=== PATIENT | female | born 1950 | race Hispanic/Latino ===

== ENCOUNTER 2016-11-15 11:38 | Emergency (ER) | payer MEDICARE ==
--- NOTE | 2016-11-15 12:34 | ED PDOC ---
HPI: General Adult Time Seen by Provider: 11/15/16 12:04 Chief Complaint (Nursing): Chest Pain History Per: Patient History/Exam Limitations: no limitations Onset/Duration Of Symptoms: Days Current Symptoms Are (Timing): Intermittent Episodes Additional Complaint(s): Ronna Hoang is a 66 year old female, with a previous medical history of hyperthyroidism, who presents to the ED for the evaluation of mid back pain which radiates to her chest intermittently ongoing for 3 days. Patient reports pain when laying down and states it feels "sharp" and similar to indigestion. She states to suffering a cold 2 weeks ago where she was seen at [facility] and informed something was wrong with her aorta and needed follow up with her ginseng farmer. Patient reports seeing her ginseng farmer (Dr. Graham) who informed her she was fine. Patient then recalls going to her PMD for persisting symptoms of cold where she was treated for pneumonia, placed on an antibiotic and steroid which she finished taking. PMD: Past Medical History Reviewed: Historical Data, Nursing Documentation, Vital Signs Vital Signs: Last Vital Signs Temp 98.2 F 11/15/16 11:45 Pulse 90 11/15/16 11:45 Resp 18 11/15/16 11:45 BP 137/86 11/15/16 11:45 Pulse Ox 97 11/15/16 11:45 - Medical History PMH: Anxiety, HTN, Hyperthyroidism - Home Medications Home Medications: Ambulatory Orders Medication Instructions Recorded LORazepam [Ativan] 0.5 mg PO HS #15 tab 12/19/14 - Allergies Allergies/Adverse Reactions: Allergies Allergy/AdvReac Type Severity Reaction Status Date / Time tetracycline Allergy RASH Verified 09/24/15 12:19 Review of Systems ROS Statement: Except As Marked, All Systems Reviewed And Found Negative Constitutional: Negative for: Fever, Chills Cardiovascular: Positive for: Chest Pain Musculoskeletal: Positive for: Back Pain Physical Exam - Reviewed Nursing Documentation Reviewed: Yes Vital Signs Reviewed: Yes - Physical Exam Appears: Positive for: Well, Non-toxic, No Acute Distress Head Exam: Positive for: ATRAUMATIC, NORMAL INSPECTION, NORMOCEPHALIC Skin: Positive for: Normal Color, Warm, Dry Neck: Positive for: Normal, Painless ROM, Supple Cardiovascular/Chest: Positive for: Regular Rate, Rhythm, Chest Non Tender Respiratory: Positive for: CNT, Normal Breath Sounds Gastrointestinal/Abdominal: Positive for: Normal Exam, Bowel Sounds, Soft. Negative for: Tenderness Back: Positive for: Vertebral Tenderness (midline thoracic spine ). Negative for: L CVA Tenderness, R CVA Tenderness Extremity: Positive for: Normal ROM Neurologic/Psych: Positive for: Alert, Oriented - ECG O2 Sat by Pulse Oximetry: 97 (RA) Pulse Ox Interpretation: Normal Medical Decision Making Medical Decision Making: Initial Impression: back pain, chest pain Initial Plan: * CT chest angio * EKG * labs * TSH * troponin I * urine dipstick * D-dimer * PTT * PT * reevaluation Scribe Attestation: Documented by Eneida Alonzo, acting as a scribe for Eneida Khan MD. Provider Scribe Attestation: All medical record entries made by the Scribe were at my direction and personally dictated by me. I have reviewed the chart and agree that the record accurately reflects my personal performance of the history, physical exam, medical decision making, and the department course for this patient. I have also personally directed, reviewed, and agree with the discharge instructions and disposition. Disposition - Disposition Referrals: Provider ROSENDA, [Primary Care Provider] -
[2016-11-15 13:04] LABS: BASO # 0.1 K/uL (0.0-0.2); BASO % 0.5 % (0.0-2.0); EOS # 0.2 K/uL (0.0-0.7); EOS % 1.8 % (0.0-4.0); HEMATOCRIT 39.2 % (34.0-47.0); LYMPH # 1.8 K/uL (1.0-4.3); LYMPH % 16.3 % (20.0-40.0); MEAN CELL VOLUME 88.3 fl (81.0-99.0); MEAN CORPUSCULAR HEMOGLOBIN 30.1 pg (27.0-31.0); MEAN CORPUSCULAR HGB CONC 34.1 g/dL (33.0-37.0); MONO # 0.7 K/uL (0.0-0.8); MONO % 6.6 % (0.0-10.0); NEUT # 8.1 K/uL (1.8-7.0); NEUT % 74.8 % (50.0-75.0); RED CELL DISTRIBUTION WIDTH 13.3 % (11.5-14.5); WHITE BLOOD COUNT 10.8 K/uL (4.8-10.8)
[2016-11-15 13:08] LABS: ALB/GLOB RATIO 1.3 (1.0-2.1); ALKALINE PHOSPHATASE 90 U/L (38-126); ALT/SGPT 49 U/L (9-52); AST/SGOT 31 U/L (14-36); BILIRUBIN,TOTAL 0.7 mg/dl (0.2-1.3); BLOOD UREA NITROGEN 12 mg/dl (7-17); CALCIUM 10.3 mg/dL (8.4-10.2); CARBON DIOXIDE 25 mmol/L (22-30); CHLORIDE 103 mmol/L (98-107); GFR AFRICAN-AMERICAN > 60; GLUCOSE,RANDOM 92 mg/dL (65-105); POTASSIUM 3.7 MMOL/L (3.6-5.0); SODIUM 139 mmol/l (132-148); TOTAL PROTEIN 7.8 G/DL (6.3-8.2)
[2016-11-15 13:38] LABS: PARTIAL THROMBOPLASTIN TIME 27.5 Seconds (25.6-37.1)
[2016-11-15 13:39] LABS: THYROID STIMULATING HORMONE 6.36 mIU/ML (0.46-4.68)
--- NOTE | 2016-11-15 13:46 | CARD ---
APPROVED REPORT EKG Measurement Heart [id number] <Conclusion> Normal sinus rhythm Nonspecific ST abnormality Abnormal ECG
--- NOTE | 2016-11-15 16:59 | CT ---
PROCEDURE: CT Chest with contrast (Pulmonary Angiogram) HISTORY: Chest/back pain COMPARISON: None available. TECHNIQUE: Axial computed tomography images were obtained of the chest in the pulmonary arterial phase of enhancement. Coronal and sagittal reformatted images were created and reviewed. Intravenous contrast dose: 98 cc Visipaque 320 contrast material. Radiation dose: Total exam DLP = 255.51 mGy-cm. This CT exam was performed using one or more of the following dose reduction techniques: Automated exposure control, adjustment of the mA and/or kV according to patient size, and/or use of iterative reconstruction technique. FINDINGS: PULMONARY ARTERIES: Unremarkable. No pulmonary embolism. The visualized of pulmonary trunk, right and left main, lobar, segmental and subsegmental branches of the pulmonary arteries are well opacified with no definitive filling defects seen to suggest acute pulmonary embolus. Pulmonary trunk measures approximately 2.75 cm AORTA: . Ascending thoracic aorta measures approximately 3.5 cm and descending thoracic aorta measures approximately 2.3 cm. No evidence of at thoracic aortic aneurysm or dissection. LUNGS: Mild atelectasis/scarring changes right posterior lung base and left lingular regions. . Mild biapical pleural thickening and parenchymal scarring right greater than left. . Small approximately 3.5 mm calcified granuloma right posterior superior upper lobe bordering the fissure. . 2.5 mm nodular density left lung apex Small subpleural 3.4 mm subpleural nodule left posterior upper lobe PLEURAL SPACES: Unremarkable. No effusion or pneuomothorax. HEART: . Heart size within range of normal. No significant pericardial effusion. LYMPH NODES: No significant mediastinal or hilar lymphadenopathy. . The central airways are midline patent. No endoluminal lesions seen. . BONES, CHEST WALL: Unremarkable. Minor multilevel degenerative spondylosis of the thoracic spine. There are no acute compression fractures no retropulsed fragments. Mild diffuse demineralization however no suspicious lytic or blastic lesions identified. . OTHER FINDINGS: Mild fatty hepatic infiltration. Pancreas is slightly atrophic and fatty replaced. Mildly nodular right adrenal gland. IMPRESSION: No evidence of acute central pulmonary embolus. Mild bibasilar atelectasis and or scarring in the right posterior lung base and lingular region. There also mild chronic biapical pleural thickening changes and parenchymal scarring right greater than left. Small parenchymal and subpleural nodules left posterior upper lung field as above. Follow-up CT scan in 6 months could be performed. Tiny granuloma right upper lung field. Mild fatty hepatic infiltration. Slight nodular right adrenal gland.
--- NOTE | 2016-11-15 17:20 | ED PDOC ---
- Laboratory Results Result Diagrams: 11/15/16 12:40 11/15/16 12:40 - ECG ECG Rhythm: Positive for: Normal QRS, Nonspecific Changes O2 Sat by Pulse Oximetry: 97 (RA) Disposition - Clinical Impression Clinical Impression: Pleuritic chest pain - POA Present On Arrival: None - Disposition Referrals: Provider TBD, [Primary Care Provider] - Blake Berman MD [Staff Provider] - Disposition: Routine/Home Disposition Time: 17:19 Condition: FAIR Prescriptions: Naproxen [Naprosyn] 500 mg PO Q12H #20 tab Instructions: Pleurisy (ED)
[2016-11-15 17:35] VITALS: BP 132/74; PULSE 75; RESP 19; TEMP 98.6; O2SAT 99
== END 2016-11-15 17:35 | disposition home or self-care (01) ==
LOC: SUPCPDRO 11:38 → H.ER 11:38
DX: R09.1 Pleurisy (principal); E05.90 Thyrotoxicosis, unspecified without thyrotoxic crisis or storm

== ENCOUNTER 2017-07-28 09:01 | Day surgery (SDC) | payer MEDICARE ==
[2017-07-16 09:56] VITALS: RESP 20
[2017-07-16 09:59] VITALS: BMI 20.3
[2017-07-28] MEDS ORDERED: Acetylcholine 1% Opth System Pack IO ONE (09:33)
[2017-07-28] MEDS ORDERED: Tetracaine 0.5% Ophth 2 ML BOTTLE ONE (09:33)
[2017-07-28] MEDS ORDERED: Lidocaine 1% 20 MG/2 ML PF AMP ONE (09:33)
[2017-07-28] MEDS ORDERED: Maxitrol Opht Susp ONE (09:33)
[2017-07-28] MEDS ORDERED: Pilocarpine 1% Opht Soln ONE (09:34)
[2017-07-28] MEDS ORDERED: CA CL/K CL/NA CL 500 ML IR ONE (09:34)
[2017-07-28] MEDS ORDERED: EPINEPHrine 1 mg/ml (1:1000) Inj ONE (09:34)
[2017-07-28] MEDS ORDERED: BSS 15 ML 45 ML IR ONE (09:34)
[2017-07-28] MEDS ORDERED: Chondroitin/Hyaluronate Opth Syringe KIT (0.55 ml-0.5 ml) IO ONE (09:35)
[2017-07-28] MEDS ORDERED: Povidone Iodine 5% Opht SOLUTION ONE (09:35)
[2017-07-28] MEDS ORDERED: Phenylephrine 2.5% Opht Soln OS ONE (09:39)
[2017-07-28] MEDS ORDERED: Flurbiprofen 0.3% Opht SOLN OS SCH (09:45)
[2017-07-28] MEDS ORDERED: Tropicamide 1% Opht 150 DROP/15 ML OS SCH (09:45)
[2017-07-28] MEDS: Phenylephrine 2.5% Opht Soln OS ONE ×2 (10:15→12:15)
[2017-07-28] MEDS ORDERED: Flurbiprofen 0.3% Opht SOLN OS ONE (10:15)
[2017-07-28] MEDS ORDERED: Tropicamide 1% Opht 150 DROP/15 ML OS ONE (10:15)
[2017-07-28] MEDS ORDERED: Midazolam 2 MG/2 ML VIAL ONE (11:46)
[2017-07-28] MEDS ORDERED: Lactated Ringer's 1,000 ML IV ONE (11:52)
[2017-07-28] MEDS ORDERED: BSS 15 ML SOL IR ONE (12:15)
[2017-07-28 13:44] VITALS: TEMP 97.8
[2017-07-28 13:46] VITALS: BP 130/82; PULSE 69
[2017-07-28 13:50] VITALS: O2SAT 96
--- NOTE | 2017-07-29 11:01 | OP ---
PROCEDURE DATE : 07/28/2017 SURGEON: MOUSTAPHA KELSEY MD ANESTHESIOLOGIST: LESLIE CALHOUN MD ANESTHESIA: IV SEDATION PREOPERATIVE DIAGNOSIS: CATARACT LEFT EYE. POSTOPERATIVE DIAGNOSIS: CATARACT LEFT EYE. OPERATION: CLEAR CORNEAL PHACOEMULSIFICATION WITH LENS IMPLANT LEFT EYE. PREPARATION AND PROCEDURE: After the patient was prepped and draped in the usual manner for sterile ophthalmic surgery, local IV sedation was administered ; eye seals were applied to the upper and lower lid margins and an adult wire lid speculum was placed within the lids. Under microsurgical control, a two- step clear corneal incision was made into the anterior chamber. The initial incision was perpendicular to the corneal plane. The second incision with the keratome was placed at a 45-degree angle to the first incision. One cc of one percent Xylocaine MPF was instilled into the anterior chamber to achieve proper intraocular anesthesia. At this time, the Viscoelastic was injected into the anterior chamber for protection of the endothelium and for maintenance of the chamber depth. A 360-degree continuous curvilinear capsulorrhexis was performed using a pre-bent 25-gauge needle. Hydrodissection and hydrodelineation were performed using a Zurita cannula and balanced salt solution. Utilizing the tip of the Zurita cannula, the nucleus was rotated freely within the capsular bag. A standard one-handed phacoemulsification was utilized at this time for sculpting and rotating of the nucleus. The nucleus was fragmented in its entirety and aspirated without any consequence. A standard I&A was carried out for the residual cortical material. No residual material was noted within the capsular bag. The posterior capsule was noted to be clear. Additional Viscoelastic was injected into the capsular bag in preparation for lens implantation. After this has been satisfactorily achieved the intraocular lens injected through the corneal incision into the capsular bag. The intraocular lens was manipulated until it was properly oriented and the Viscoelastic was evacuated from the capsular bag and anterior chamber. The anterior chamber was reformed with balanced salt solution. The corneal incision was irrigated with BSS. The intraocular pressure was found to be within normal limits. This terminated the procedure. The speculum and lid drapes were removed. TobraDex ophthalmic suspension and Pilocarpine 1% drops one drop was applied to the eye. POSTOPERATIVE CONDITION: The patient was brought to the Post anesthesia Recovery area with stable vital signs. DMOUSTAPHA DAY MDD
== END 2017-07-28 14:05 | disposition home or self-care (01) ==
LOC: H.OPSURG 09:01
PROVIDERS: ATTEND Ophthalmology
DX: H25.812 Combined forms of age-related cataract, left eye (principal); E03.9 Hypothyroidism, unspecified
CPT/HCPCS: 66984; J0171; J2250; J2405; J3010; J7120; V2632

== ENCOUNTER 2017-07-29 08:54 | Emergency (ER) | payer MEDICARE ==
[2017-07-29 08:54] VITALS: BMI 20.3
[2017-07-29 08:59] VITALS: BP 151/83; PULSE 94; RESP 17; TEMP 97.6; O2SAT 99
--- NOTE | 2017-07-29 09:11 | ED PDOC ---
HPI: Abdomen Time Seen by Provider: 07/29/17 09:00 Chief Complaint (Nursing): Eye Problem Chief Complaint (Provider): Abdominal Pain History Per: Patient History/Exam Limitations: no limitations Onset/Duration Of Symptoms: Days (x 3) Current Symptoms Are (Timing): Still Present Additional Complaint(s): Teresa is a 67 y/o female with a history of gastritis, diverticulosis, and hypertension who presents to the ED complaining of abdominal pain that started 3 days ago with associated nausea. She denies vomiting, fever, or urinary symptoms, and has not taken any medications for the pain. Patient's last colonoscopy was 4 years ago. Her bowel movements have been normal. Patient is a Yaz[employer]ism and will refuse blood transfusion. PMD: Rosa Past Medical History Reviewed: Historical Data, Nursing Documentation, Vital Signs Vital Signs: Last Vital Signs Temp 97.6 F 07/29/17 08:56 Pulse 94 H 07/29/17 08:56 Resp 17 07/29/17 08:56 BP 151/83 H 07/29/17 08:56 Pulse Ox 99 07/29/17 08:56 - Medical History PMH: Anxiety, Gastritis, HTN, Hypothyroidism Denies: Chronic Kidney Disease Other PMH: diverticulosis - Surgical History Surgical History: Appendectomy, Cholecystectomy Other surgeries: hysterectomy - Family History Family History: States: Unknown Family Hx - Social History Current smoker - smoking cessation education provided: No Alcohol: None Drugs: Denies - Home Medications Home Medications: Ambulatory Orders Medication Instructions Recorded Levothyroxine [Synthroid] 100 mcg PO DAILY 07/16/17 - Allergies Allergies/Adverse Reactions: Allergies Allergy/AdvReac Type Severity Reaction Status Date / Time tetracycline Allergy RASH Verified 07/28/17 10:20 Review of Systems ROS Statement: Except As Marked, All Systems Reviewed And Found Negative Constitutional: Negative for: Fever Gastrointestinal: Positive for: Nausea, Abdominal Pain. Negative for: Vomiting , Diarrhea Genitourinary Female: Negative for: Dysuria, Hematuria Physical Exam - Reviewed Nursing Documentation Reviewed: Yes Vital Signs Reviewed: Yes - Physical Exam Appears: Positive for: Well, Non-toxic, No Acute Distress Skin: Positive for: Normal Color, Warm, Dry Eye Exam: Positive for: Normal appearance Neck: Positive for: Normal, Painless ROM, Supple Cardiovascular/Chest: Positive for: Regular Rate, Rhythm. Negative for: Murmur Respiratory: Positive for: Normal Breath Sounds. Negative for: Respiratory Distress Gastrointestinal/Abdominal: Positive for: Soft, Tenderness (superpubic) Back: Positive for: Normal Inspection. Negative for: L CVA Tenderness, R CVA Tenderness, Vertebral Tenderness Extremity: Positive for: Normal ROM. Negative for: Pedal Edema, Deformity Neurologic/Psych: Positive for: Alert, Oriented. Negative for: Motor/Sensory Deficits - ECG O2 Sat by Pulse Oximetry: 99 (RA) Pulse Ox Interpretation: Normal Medical Decision Making Medical Decision Making: Time: 9:00 Initial Impression: Abdominal Pain; Differentials include but not limited to acute diverticulitis, UTI, small bowel obstruction Initial Plan: --CT Abdomen & Pelvis Scribe Attestation: Documented by Samir Salgado, acting as a scribe for Dr. Jaun May MD. Provider Scribe Attestation: All medical record entries made by the Scribe were at my direction and personally dictated by me. I have reviewed the chart and agree that the record accurately reflects my personal performance of the history, physical exam, medical decision making, and the department course for this patient. I have also personally directed, reviewed, and agree with the discharge instructions and disposition. Disposition - Disposition
--- NOTE | 2017-07-29 09:56 | ED PDOC ---
HPI: Eye Injury/Pain Time Seen by Provider: 07/29/17 09:00 Chief Complaint (Nursing): Eye Problem Chief Complaint (Provider): Eye problem History Per: Patient Additional Complaint(s): Pt had cataract surgery on L eye yesterday by Dr. Winters. States today noticed what looked like a piece of glass in her L eye and twitching around her eye. States vision has not changed since after the surgery. Denies pain, redness, discharge, trauma. Past Medical History Reviewed: Nursing Documentation, Vital Signs Vital Signs: Last Vital Signs Temp 97.6 F 07/29/17 08:56 Pulse 94 H 07/29/17 08:56 Resp 17 07/29/17 08:56 BP 151/83 H 07/29/17 08:56 Pulse Ox 99 07/29/17 08:56 - Medical History PMH: Anxiety, Hypothyroidism Denies: Chronic Kidney Disease - Family History Family History: States: Unknown Family Hx - Social History Current smoker - smoking cessation education provided: No Alcohol: None - Home Medications Home Medications: Ambulatory Orders Medication Instructions Recorded Levothyroxine [Synthroid] 100 mcg PO DAILY 07/16/17 - Allergies Allergies/Adverse Reactions: Allergies Allergy/AdvReac Type Severity Reaction Status Date / Time tetracycline Allergy RASH Verified 07/28/17 10:20 Review of Systems Constitutional: Negative for: Fever Eyes: Negative for: Pain, Vision Change, Conjunctivae Inflammation, Eyelid Inflammation, Redness Physical Exam - Reviewed Nursing Documentation Reviewed: Yes Vital Signs Reviewed: Yes - Physical Exam Appears: Positive for: Well, No Acute Distress Skin: Positive for: Normal Color, Warm, Dry Eye Exam: Positive for: Normal appearance, EOMI, PERRL, Other (No obvious foreign body noted, no discharge). Negative for: Nystagmus, Periorbital swelling, Periorbital tenderness, Conjunctival injection, Scleral icterus - ECG O2 Sat by Pulse Oximetry: 99 - Physician Consult Information Time Consulting Physican Contacted: 09:45 Physician Contacted: Casa Winters Outcome Of Conversation: Case discussed, recommends patient be discharged, can use artificial tears in addition to prescribed medications prn. Medical Decision Making Medical Decision Makin yo female with L eye complaint 1 day post-op. - Ophtho consult Disposition - Clinical Impression Clinical Impression: Eye symptom - Disposition Referrals: Casa Winters MD [Medical Doctor] - Disposition: Routine/Home Disposition Time: 10:09 Condition: STABLE Instructions: Cataract Removal Forms: [facility] (Kyrgyz)
== END 2017-07-29 10:52 | disposition home or self-care (01) ==
LOC: H.ER 08:54
DX: H57.9 Unspecified disorder of eye and adnexa (principal); F41.9 Anxiety disorder, unspecified; E03.9 Hypothyroidism, unspecified; Z98.890 Other specified postprocedural states

== ENCOUNTER 2017-08-11 08:32 | Day surgery (SDC) | payer MEDICARE ==
[2017-08-11] MEDS ORDERED: Maxitrol Opht Susp ONE (08:44)
[2017-08-11] MEDS ORDERED: Tetracaine 0.5% Ophth 2 ML BOTTLE ONE (08:44)
[2017-08-11] MEDS ORDERED: Acetylcholine 1% Opth System Pack IO ONE ×2 (08:44→11:02)
[2017-08-11] MEDS ORDERED: Lidocaine 1% 20 MG/2 ML PF AMP ONE (08:45)
[2017-08-11] MEDS ORDERED: Pilocarpine 1% Opht Soln ONE (08:45)
[2017-08-11] MEDS ORDERED: EPINEPHrine 1 mg/ml (1:1000) Inj ONE (08:45)
[2017-08-11] MEDS ORDERED: CA CL/K CL/NA CL 500 ML IR ONE (08:46)
[2017-08-11] MEDS ORDERED: BSS 15 ML 45 ML IR ONE (08:46)
[2017-08-11] MEDS ORDERED: Povidone Iodine 5% Opht SOLUTION ONE (08:47)
[2017-08-11] MEDS ORDERED: Chondroitin/Hyaluronate Opth Syringe KIT (0.55 ml-0.5 ml) IO ONE ×2 (08:47→11:02)
[2017-08-11 08:59] VITALS: RESP 20
[2017-08-11] MEDS ORDERED: Phenylephrine 2.5% Opht Soln OD ONE (09:28)
[2017-08-11] MEDS ORDERED: Tropicamide 1% Opht 150 DROP/15 ML RIGHTEYE SCH (09:30)
[2017-08-11] MEDS ORDERED: Flurbiprofen 0.3% Opht SOLN OD SCH (09:30)
[2017-08-11] MEDS ORDERED: Lactated Ringer's 1,000 ML IV ONE (09:38)
[2017-08-11] MEDS ORDERED: Flurbiprofen 0.3% Opht SOLN OU ONE (09:43)
[2017-08-11] MEDS ORDERED: Tropicamide 1% Opht 150 DROP/15 ML RIGHTEYE ONE (09:44)
[2017-08-11] MEDS ORDERED: Midazolam 2 MG/2 ML VIAL ONE (10:41)
[2017-08-11] MEDS ORDERED: Mepivacaine HCl 2% (20ml) Inj IJ ONE (11:02)
[2017-08-11] MEDS ORDERED: Tetracaine 0.5% Ophth 2 ML BOTTLE OD ONE (11:02)
[2017-08-11] MEDS ORDERED: Maxitrol Opht Susp OD ONE (11:02)
[2017-08-11] MEDS ORDERED: Pilocarpine 1% Opht Soln OD ONE (11:02)
[2017-08-11] MEDS ORDERED: Bupivacaine HCl 0.5% PF (10 ml) Inj IJ ONE (11:02)
[2017-08-11] MEDS ORDERED: Povidone Iodine 5% Opht SOLUTION OD ONE (11:02)
[2017-08-11 12:45] VITALS: BP 114/70; PULSE 73; TEMP 97.4; O2SAT 100
--- NOTE | 2017-08-17 10:47 | OP ---
PROCEDURE DATE : 08/11/2017 SURGEON: MOUSTAPHA KELSEY MD ANESTHESIOLOGIST: LESLIE CALHOUN MD ANESTHESIA: IV SEDATION PREOPERATIVE DIAGNOSIS: CATARACT RIGHT EYE. POSTOPERATIVE DIAGNOSIS: CATARACT RIGHT EYE. OPERATION: CLEAR CORNEAL PHACOEMULSIFICATION WITH LENS IMPLANT RIGHT EYE. PREPARATION AND PROCEDURE: After the patient was prepped and draped in the usual manner for sterile ophthalmic surgery, local IV sedation was administered ; eye seals were applied to the upper and lower lid margins and an adult wire lid speculum was placed within the lids. Under microsurgical control, a two- step clear corneal incision was made into the anterior chamber. The initial incision was perpendicular to the corneal plane. The second incision with the keratome was placed at a 45-degree angle to the first incision. One cc of one percent Xylocaine MPF was instilled into the anterior chamber to achieve proper intraocular anesthesia. At this time, the Viscoelastic was injected into the anterior chamber for protection of the endothelium and for maintenance of the chamber depth. A 360-degree continuous curvilinear capsulorrhexis was performed using a pre-bent 25-gauge needle. Hydrodissection and hydrodelineation were performed using a Zurita cannula and balanced salt solution. Utilizing the tip of the Zurita cannula, the nucleus was rotated freely within the capsular bag. A standard one-handed phacoemulsification was utilized at this time for sculpting and rotating of the nucleus. The nucleus was fragmented in its entirety and aspirated without any consequence. A standard I&A was carried out for the residual cortical material. No residual material was noted within the capsular bag. The posterior capsule was noted to be clear. Additional Viscoelastic was injected into the capsular bag in preparation for lens implantation. After this has been satisfactorily achieved the intraocular lens injected through the corneal incision into the capsular bag. The intraocular lens was manipulated until it was properly oriented and the Viscoelastic was evacuated from the capsular bag and anterior chamber. The anterior chamber was reformed with balanced salt solution. The corneal incision was irrigated with BSS. The intraocular pressure was found to be within normal limits. This terminated the procedure. The speculum and lid drapes were removed. TobraDex ophthalmic suspension and Pilocarpine 1% drops one drop was applied to the eye. POSTOPERATIVE CONDITION: The patient was brought to the Post anesthesia Recovery area with stable vital signs. DMOUSTAPHA DAY MDD
== END 2017-08-11 13:30 | disposition home or self-care (01) ==
LOC: H.OPSURG 08:32
PROVIDERS: ATTEND Ophthalmology
DX: H25.812 Combined forms of age-related cataract, left eye (principal); E03.9 Hypothyroidism, unspecified
CPT/HCPCS: 66984; J0171; J2250; J2405; J3010; J7120; V2632

== ENCOUNTER 2018-08-20 09:00 | Emergency (ER) | payer MEDICARE ==
[2018-08-20 09:08] VITALS: BMI 20.5
--- NOTE | 2018-08-20 09:27 | ED PDOC ---
HPI: Chest Pain Time Seen by Provider: 08/20/18 09:15 History Per: Patient Onset/Duration Of Symptoms: Days (1) Current Symptoms Are (Timing): Intermittent Episodes Severity: Mild Quality: Sharp Associated Symptoms: denies: Dyspnea, Diaphoresis, Syncope Exacerbating Factors: Deep Breathing Additional Complaint(s): Sharp left sided chest pain and left shoulder pain since yesterday. Occurred while exercising and has had intermittent pain since. Wosre on inspiration. Denies SOB. Recent stress test and echo in May 2018 which were normal as per pt. Past Medical History Vital Signs: Last Vital Signs Temp 98.2 F 08/20/18 09:09 Pulse 78 08/20/18 09:09 Resp 20 08/20/18 09:09 BP 161/78 H 08/20/18 09:09 Pulse Ox 98 08/20/18 09:09 - Medical History PMH: Anxiety, Hypothyroidism Denies: Chronic Kidney Disease - Family History Family History: States: Unknown Family Hx - Home Medications Home Medications: Ambulatory Orders Medication Instructions Recorded Levothyroxine [Synthroid] 100 mcg PO DAILY 07/16/17 Naproxen [Naprosyn] 500 mg PO Q12H #20 tab 08/20/18 - Allergies Allergies/Adverse Reactions: Allergies Allergy/AdvReac Type Severity Reaction Status Date / Time tetracycline Allergy RASH Verified 08/20/18 09:24 Review of Systems ROS Statement: Except As Marked, All Systems Reviewed And Found Negative Cardiovascular: Positive for: Chest Pain Physical Exam - Reviewed Nursing Documentation Reviewed: Yes Vital Signs Reviewed: Yes - Physical Exam Appears: Positive for: Non-toxic, No Acute Distress Head Exam: Positive for: ATRAUMATIC, NORMAL INSPECTION, NORMOCEPHALIC Skin: Positive for: Normal Color, Warm, DRY Eye Exam: Positive for: EOMI, Normal appearance, PERRL ENT: Positive for: Normal ENT Inspection Neck: Positive for: Normal, Painless ROM Cardiovascular/Chest: Positive for: Regular Rate, Rhythm Respiratory: Positive for: CNT, Normal Breath Sounds Gastrointestinal/Abdominal: Positive for: Normal Exam, Soft Back: Positive for: Normal Inspection Extremity: Positive for: Normal ROM Neurological/Psych: Positive for: Awake, Alert, Normal Tone - ECG O2 Sat by Pulse Oximetry: 98 Medical Decision Making Medical Decision Making: Discussed with Dr. Berman will see pt in office Disposition - Clinical Impression Clinical Impression: Atypical chest pain, Anxiety - Patient ED Disposition Is Patient to be Admitted: No - Disposition Referrals: Blake Berman MD [Staff Provider] - Disposition: Routine/Home Disposition Time: 11:08 Condition: FAIR Prescriptions: Naproxen [Naprosyn] 500 mg PO Q12H #20 tab Instructions: Anxiety, Adult (DC), Chest Pain
[2018-08-20 11:27] VITALS: BP 131/85; PULSE 81; RESP 18; TEMP 98.3; O2SAT 97
--- NOTE | 2018-08-21 19:10 | CARD ---
APPROVED REPORT Date of service: 08/20/2018 EKG Measurement Heart [id number] <Conclusion> Normal sinus rhythm ST depression, consider inferolateral ischemia Abnormal ECG
== END 2018-08-20 11:24 | disposition home or self-care (01) ==
LOC: H.ER 09:00
DX: R07.89 Other chest pain (principal); F41.9 Anxiety disorder, unspecified; E03.9 Hypothyroidism, unspecified